=== PATIENT | female | born 1975 | race Caucasian/White ===

== ENCOUNTER 2017-06-23 16:59 | Emergency (ER) | payer BC ==
--- NOTE | 2017-06-23 17:13 | Emergency Department Record ---
History of Present Illness - General Chief complaint: Burn/Smoke Inhalation Stated complaint: LT HAND BURN Time Seen by Provider: 06/23/17 17:08 Source: Patient Mode of Arrival: Ambulatory Limitations: No limitations - History of Present Illness Initial comments: The patient burned her L hand about an hour and a half ago when she spilled some boiling liquid on it. The burn is mainly over the palmar surface of the L 5th finger. There is a minimal burn to the medial L 4th finger also and possibly to the palm just proximal to the 5th finger on the palmar surface. Complaint: Burn Onset/Timin -: Hour(s) Type of Exposure: Hot liquid Smoke Inhalation: None Severity: Moderate Severity scale (1-10): 8 Associated Symptoms: Denies other symptoms - Related Data Home Medications Medication Instructions Recorded Confirmed Last Taken No Home Med [NO HOME MEDS] 06/23/17 06/23/17 Unknown Allergies Allergy/AdvReac Type Severity Reaction Status Date / Time codeine Allergy NEUROTOXICI Verified 06/23/17 17:04 TY Travel Screening - Travel/Exposure Within Last 30 Days Have you traveled within the last 30 days?: No - Travel/Exposure Within Last Year Have you traveled outside the [place] in the last year?: No - Additonal Travel Details Have you been exposed to anyone with a communicable illness?: No Review of Systems Constitutional: Denies: Chills, Fever Past Medical History - SOCIAL HISTORY Smoking Status: Never smoker Alcohol Use: Rare Drug Use: None - RESPIRATORY Hx Respiratory Disorders: No - CARDIOVASCULAR Hx Cardio Disorders: No - NEURO Hx Neuro Disorders: No - GI Hx GI Disorders: Yes Hx Ulcer: Yes - Hx Genitourinary Disorders: No - ENDOCRINE Hx Endocrine Disorders: No - MUSCULOSKELETAL Hx Musculoskeletal Disorders: No - PSYCH Hx Psych Problems: No - HEMATOLOGY/ONCOLOGY Hx Hematology/Oncology Disorders: No Family Medical History Any Significant Family History?: Yes Hx Diabetes: Mother Physical Exam - General General Appearance: Alert, Cooperative, No acute distress - Head Head exam: Atraumatic, Normocephalic - Eye Eye exam: Normal appearance, PERRL - Extremities Extremities exam: Tenderness (There is mild tenderness over the burn areas.), Other (The L hand is NVI.). negative: Normal inspection (There is erythema to the palmar 5th > 4th finger surfaces. There may be a superficial burn to the dorsal 5th finger. The chang do not appear to be circumferential. ) Image of Hand: 1 - Superficial burn with possible superficial partial thickness burn present. 2 - 1st degree burn. 3 - possible 1st degree burn. - Neurological Neurological exam: Alert. negative: Motor sensory deficit Course Vital Signs 06/23/17 17:05 Temperature 98.0 F Pulse Rate 102 H Respiratory 20 Rate Blood Pressure 107/79 Pulse Ox 100 - Reevaluation(s) Reevaluation #1: I explained to the patient that we will dress the fingers with Silvadene and she is to take the Tylenol for pain and return to her PCP or the ER for a wound check in 24 hours. 06/23/17 17:18 Disposition Disposition: Discharge Clinical Impression: Burn, hands, second degree Qualifiers: Encounter type: initial encounter Burn of hand location: unspecified site Laterality: left Qualified Code(s): T23.202A - Burn of second degree of left hand, unspecified site, initial encounter Disposition: Home, Self-Care Condition: (1) Good Instructions: Second Degree Burn (ED) Additional Instructions: Please take the Tylenol for pain and keep the hand clean and dry. Please see your PCP or return to the ER in 24 hours for a wound check. Forms: Patient Portal Access Time of Disposition: 17:20 Quality - Quality Measures Quality Measures: N/A - Blood Pressure Screening View Details: Yes Does Patient Have Any of the Following: No Blood Pressure Classification: Normal BP Reading Systolic Measurement: 107 Diastolic Measurement: 79 Screening for High Blood Pressure: < Normal BP, F/U Not Required > [G8783]
[2017-06-23] MEDS: ACETAMINOPHEN 325 MG TAB PO ONE (17:18)
[2017-06-23] MEDS: Diph,Pert(Acell),Tet Vac 0.5 ML SYR IM ONE (17:18)
[2017-06-23] MEDS: SILVER SULFADIAZINE 25 GM CREAM TOP ONE (17:18)
== END 2017-06-23 17:44 | disposition home or self-care (01) ==
LOC: ER 16:59
DX: T23.232A Burn of second degree of multiple left fingers (nail), not including thumb, initial encounter (principal); X12.XXXA Contact with other hot fluids, initial encounter
CPT/HCPCS: 90715; 96372; 99283

== ENCOUNTER 2017-06-24 16:32 | Emergency (ER) | payer BC ==
--- NOTE | 2017-06-24 17:09 | Emergency Department Record ---
History of Present Illness - General Chief Complaint: Wound, check Stated Complaint: RE DRESS WOUND Time Seen by Provider: 06/24/17 17:03 Source: Patient, Family Mode of arrival: Ambulatory Limitations: No limitations - History of Present Illness Initial Comments: 41 yo female presents for a recheck of a hand burn. She burned it on hot jam. Her 5th finger was affected the most. She reports good pain control, full ROM, minimal blistering, no drainage, no pus, no warmth or redness. She reports she is doing well. MD Complaint: Wound re-check Onset/Timin -: Days(s) Initial Visit For: Burn Returns Today for: Burn recheck Symptoms Since Prior Visit: No new symptoms Associated Symptoms: None Treatments Prior to Arrival: Dressings - Related Data Allergies Allergy/AdvReac Type Severity Reaction Status Date / Time codeine Allergy NEUROTOXICI Verified 06/24/17 16:43 TY Travel Screening - Travel/Exposure Within Last 30 Days Have you traveled within the last 30 days?: No Review of Systems Constitutional: Denies: Chills, Fever Eyes: Denies: Eye discharge ENT: Denies: Congestion, Throat pain Respiratory: Denies: Cough Gastrointestinal: Denies: Nausea, Vomiting Musculoskeletal: Denies: Arthralgia, Joint swelling, Myalgia Skin: Reports: As per HPI, Change in color, Other (burn) Neurological: Denies: Headache Psychiatric: Denies: Anxiety Hematological/Lymphatic: Denies: Easy bleeding, Easy bruising Past Medical History - SOCIAL HISTORY Smoking Status: Never smoker Alcohol Use: None Drug Use: None - RESPIRATORY Hx Respiratory Disorders: No - CARDIOVASCULAR Hx Cardio Disorders: No - NEURO Hx Neuro Disorders: No - GI Hx GI Disorders: Yes Hx Ulcer: Yes - Hx Genitourinary Disorders: No - ENDOCRINE Hx Endocrine Disorders: No - MUSCULOSKELETAL Hx Musculoskeletal Disorders: No - PSYCH Hx Psych Problems: No - HEMATOLOGY/ONCOLOGY Hx Hematology/Oncology Disorders: No Family Medical History Any Significant Family History?: Yes Hx Diabetes: Mother Physical Exam - General General Appearance: Alert, Oriented x3, Cooperative, No acute distress - Head Head exam: Normal inspection - Eye Eye exam: Normal appearance - ENT ENT exam: Normal exam Ear exam: Normal external inspection Nasal Exam: Normal inspection Mouth exam: Normal external inspection - Neck Neck exam: Normal inspection - Cardiovascular Cardiovascular Exam: Regular rate, Normal rhythm, Normal heart sounds Peripheral Pulses: 2+: Radial (L) - Rectal Rectal exam: Deferred - exam: Deferred - Extremities Extremities exam: Full ROM, Normal capillary refill. negative: Normal inspection, Joint swelling Image of Hand: 1 - no swelling, very superficial blistering on the palmar side, no draiange, no pus, no warmth, full ROM without any pain, brisk CR, intact sensation, nail unenvolved. - Neurological Neurological exam: Alert, Oriented X3 - Psychiatric Psychiatric exam: negative: Agitated, Anxious - Skin Skin exam: Other (as above) Course Vital Signs 06/24/17 16:43 Temperature 98.1 F Pulse Rate 83 Respiratory 20 Rate Blood Pressure 131/79 Pulse Ox 98 - Reevaluation(s) Reevaluation #1: The patient is healing well No signs of complications She will be DC home for return follow up as needed 06/24/17 17:10 Disposition Disposition: Discharge Clinical Impression: Burn, hands, second degree Qualifiers: Encounter type: initial encounter Burn of hand location: single finger excluding thumb Laterality: left Qualified Code(s): T23.222A - Burn of second degree of single left finger (nail) except thumb, initial encounter Disposition: Home, Self-Care Condition: (1) Good Instructions: Second Degree Burn (ED) Additional Instructions: Return if you have any concerns about the ongoing healing of the burn Apply the cream twice daily thinly over the burn Forms: Patient Portal Access Time of Disposition: 17:11 Quality - Quality Measures Quality Measures: N/A - Blood Pressure Screening Does Patient Have Any of the Following: No Blood Pressure Classification: Pre-Hypertensive BP Reading Systolic Measurement: 131 Diastolic Measurement: 79 Screening for High Blood Pressure: < Pre-Hypertensive BP, F/U Documented > [ [id number]] Pre-Hypertensive Follow-up Interventions: Referral to alternative/primary care provider.
== END 2017-06-24 17:29 | disposition home or self-care (01) ==
LOC: ER 16:32
DX: T23.222A Burn of second degree of single left finger (nail) except thumb, initial encounter (principal); X12.XXXA Contact with other hot fluids, initial encounter
CPT/HCPCS: 99282